=== PATIENT | male | born 1990 | race Caucasian/White ===

== ENCOUNTER 2018-05-01 15:48 | Emergency (ER) | payer OTHER ==
[2018-05-01 18:44] VITALS: BP 124/78
--- NOTE | 2018-05-01 18:44 | NUR ---
Patient discharged with v/s stable. Written and verbal after care instructions given and explained. Patient alert, oriented and verbalized understanding of instructions. Ambulatory with steady gait. All questions addressed prior to discharge. ID band removed. Patient advised to follow up with PMD. Rx of NAPROSYN 375MG, TESSALON PERLS given. Patient educated on indication of medication including possible reaction and side effects. Opportunity to ask questions provided and answered.
== END 2018-05-01 18:44 | disposition home or self-care (01) ==
LOC: MED 15:48
DX: B34.9 Viral infection, unspecified (principal)
CPT/HCPCS: 99283

== ENCOUNTER 2018-09-18 15:45 | Emergency (ER) | payer OTHER ==
[~2018-09-18] VITALS: Ht 180.3 cm; Wt 84.0 kg
[2018-09-18 15:48] VITALS: BP 128/84
--- NOTE | 2018-09-18 15:53 | NUR ---
PT AMBULATED TO ER BED 3
[2018-09-18] MEDS ORDERED: IBUPROFEN 600 MG TAB PO ONE (16:15)
--- NOTE | 2018-09-18 16:18 | NUR ---
C/O RT 1ST TOE PAIN 12/05 X1 DAY. PT REPORTS HITTING R 1ST TOE WHILE GETTING INTO THE SHOWER YESTERDAY. PT CAN BARE WEIGHT BUT IT IS PAINFUL. PT ALSO REPORTS INTERMITENT TINGLING/NUMBNESS. REDNESS AND MILD SWELLING PRESENT, NO OBVIOUS DEFORMITY, +CMS. BED IN LOW POSITION, SIDE RAIL UP X1.
[2018-09-18 17:55] VITALS: BP 126/78
--- NOTE | 2018-09-18 17:55 | NUR ---
Patient discharged with v/s stable. Written and verbal after care instructions given and explained. Patient alert, oriented and verbalized understanding of instructions. Ambulatory with steady gait. All questions addressed prior to discharge. ID band removed. Patient advised to follow up with PMD. Rx of TRAMADOL, MOTRIN given. Patient educated on indication of medication including possible reaction and side effects. Opportunity to ask questions provided and answered.
== END 2018-09-18 17:55 | disposition home or self-care (01) ==
LOC: MED 15:45
DX: S90.111A Contusion of right great toe without damage to nail, initial encounter (principal); F17.210 Nicotine dependence, cigarettes, uncomplicated; W18.41XA Slipping, tripping and stumbling without falling due to stepping on object, initial encounter; Y93.01 Activity, walking, marching and hiking; Y92.091 Bathroom in other non-institutional residence as the place of occurrence of the external cause; Y99.8 Other external cause status
CPT/HCPCS: 73660; 99283; Q0092